=== PATIENT | female | born 1960 | race African-American/Black ===

== ENCOUNTER 2020-06-05 11:05 | Emergency (ER) | payer OTHER ==
[2020-06-05 11:37] VITALS: BP 123/66; PULSE 65; TEMP 97.9; BMI 24.3
[2020-06-05] MEDS ORDERED: DIPHTH,PERTUSS(ACELL),TET 0.5 ML DISP.SYRIN IM ONE ×2 (11:53→11:55)
== END 2020-06-05 12:10 | disposition home or self-care (01) ==
LOC: JERFT 11:05
PROC: 3E0234Z Introduction of Serum, Toxoid and Vaccine into Muscle, Percutaneous Approach (ICD-10-PCS; principal; 2020-06-05)
DX: S61.432A Puncture wound without foreign body of left hand, initial encounter (principal)
CPT/HCPCS: 73130-TC-LT-FY; 90715; 99284-25